=== PATIENT | female | born 1965 | race Caucasian/White ===

== ENCOUNTER → 2024-05-18 12:55 | Outpatient (REF) | payer BC, SELFPAY | LOC: HWWDC 12:55 | PROVIDERS: ATTENDING PHYSICIAN Family Medicine | DX: Z12.31 Encounter for screening mammogram for malignant neoplasm of breast (principal) | CPT/HCPCS: 77063; 77067 ==

== ENCOUNTER → 2024-05-18 12:59 | Outpatient (REF) | payer SELFPAY | LOC: HWRAD 12:59 | PROVIDERS: ATTENDING PHYSICIAN Family Medicine | DX: E78.5 Hyperlipidemia, unspecified (principal) | CPT/HCPCS: 75571 ==